=== PATIENT | male | born 1960 | race Caucasian/White ===

== ENCOUNTER 2017-09-19 06:49 | Inpatient (IN) | payer OTHER ==
[2017-09-19 06:49] VITALS: BMI 22.1
[2017-09-19 07:43] LABS: BASO % 0.3 % (0.0-2.0); EOS # 0.1 K/uL (0.0-0.7); EOS % 1.4 % (0.0-4.0); HEMOGLOBIN 12.3 g/dL (12.0-18.0); LYMPH # 0.7 K/uL (1.0-4.3); LYMPH % 12.1 % (20.0-40.0); MEAN CORPUSCULAR HEMOGLOBIN 28.9 pg (27.0-31.0); MEAN PLATELET VOLUME 7.3 fL (7.2-11.7); MONO # 0.6 K/uL (0.0-0.8); MONO % 9.9 % (0.0-10.0); NEUT # 4.5 K/uL (1.8-7.0); NEUT % 76.3 % (50.0-75.0); RBC 4.25 Mil/uL (4.40-5.90); RED CELL DISTRIBUTION WIDTH 15.3 % (11.5-14.5); WHITE BLOOD COUNT 5.9 K/uL (4.8-10.8)
[2017-09-19 07:54] LABS: INR 1.1; PROTHROMBIN TIME 11.5 SECONDS (9.7-12.2)
[2017-09-19 08:09] LABS: ALB/GLOB RATIO 1.5 (1.0-2.1); ALBUMIN 4.2 g/dL (3.5-5.0); ALT/SGPT 20 U/L (21-72); AST/SGOT 25 U/L (17-59); BLOOD UREA NITROGEN 13 mg/dL (9-20); CALCIUM 8.9 mg/dl (8.6-10.4); GFR AFRICAN-AMERICAN > 60; GFR NON-AFRICAN AMERICAN > 60
[2017-09-19 08:13] LABS: CK-MB 1.52 ng/mL (0.0-3.38)
--- NOTE | 2017-09-19 08:25 | RAD ---
HISTORY: Chest pain COMPARISON: 07/21/2015. FINDINGS: LUNGS: The lungs are well inflated and clear. PLEURA: No significant pleural effusion identified, no pneumothorax apparent. CARDIOVASCULAR: The heart is normal in size. Status post CABG. OSSEOUS STRUCTURES: No significant abnormalities. VISUALIZED UPPER ABDOMEN: Normal. OTHER FINDINGS: None. IMPRESSION: No active pulmonary disease.
--- NOTE | 2017-09-19 08:37 | C.PDOC ---
History Of Present Illness 57 y/o M c PMHx CAD s/p CABG p/w chest pain since awakening this morning. Reports chest pain, midsternal, burning in character, associated with dizziness and bilateral hand numbness and shortness of breath. Denies nausea, vomiting, diaphoresis, cough, fever, trauma. Took 162mg ASA prior to arrival. Time Seen by Provider: 09/19/17 07:16 Chief Complaint (Nursing): Chest Pain Past Medical History Vital Signs: Last Vital Signs Temp 98.5 F 09/19/17 07:11 Pulse 58 L 09/19/17 07:26 Resp 12 09/19/17 07:31 BP 103/67 09/19/17 07:11 Pulse Ox 100 09/19/17 07:31 - Medical History PMH: CAD, CHF, Gastritis, HTN, Hypercholesterolemia Denies: Depression, Diabetes, Hepatitis, HIV, Seizures, Sexually Transmitted Disease Surgical History: CABG - [facility] DETOXIFICATION SERVICES FOR SUBSTANCE ABUSE TREATMENT (05/10/15) INJECT/INFUSE NEC (04/24/13) Family History: States: Unknown Family Hx - Social History Hx Tobacco Use: Yes Hx Alcohol Use: No Hx Substance Use: Yes - Immunization History Hx Tetanus Toxoid Vaccination: No Hx Influenza Vaccination: No Hx Pneumococcal Vaccination: No Review Of Systems Except As Marked, All Systems Reviewed And Found Negative. Constitutional: Negative for: Fever Gastrointestinal: Negative for: Vomiting Physical Exam - Physical Exam Additional Physical Exam Comments: Constitutional: No acute distress. Head: Normocephalic. Atraumatic. Eyes: PERRL. ENT: Moist mucous membranes. Neck: Supple. Cardiovascular: Regular rate. Radial pulse 2+ bilaterally. Chest: No tenderness. Sternotomy scar. Respiratory: Clear to auscultation bilaterally. GI: Soft. Nontender. Back: No CVA tenderness. Musculoskeletal: No tenderness or swelling of extremities. Skin: No rash. Neurologic: Alert, no focal deficit. ED Course And Treatment - Laboratory Results Result Diagrams: 09/19/17 07:40 09/19/17 07:40 O2 Sat by Pulse Oximetry: 100 Medical Decision Making Medical Decision Making: ASA 162 additional administered. EKG Sinus rhythm 58 bpm, LBBB, no concordant ST elevations, largely unchanged from previous CXR FINDINGS: LUNGS: The lungs are well inflated and clear. PLEURA: No significant pleural effusion identified, no pneumothorax apparent. CARDIOVASCULAR: The heart is normal in size. Status post CABG. OSSEOUS STRUCTURES: No significant abnormalities. VISUALIZED UPPER ABDOMEN: Normal. OTHER FINDINGS: None. IMPRESSION: No active pulmonary disease. Dr. Em accepts patient to hospitalist service for cardiac observation. Disposition Discussed With : Elizabeth Em Doctor Will See Patient In The: ED - Disposition Disposition: HOSPITALIZED Disposition Time: 08:40 Condition: FAIR - POA Core Measure Indicators: Chest Pain - Clinical Impression Clinical Impression: Chest pain
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
[2017-09-19 11:08] LABS: BARBITURATES, UR NEGATIVE (NEGATIVE); BENZODIAZEPINES, UR NEGATIVE (NEGATIVE); PHENCYCLIDINE, UR NEGATIVE (NEGATIVE)
[2017-09-19 11:27] LABS: OPIATES, UR POSITIVE (NEGATIVE)
[2017-09-19] MEDS ORDERED: Albuterol-Ipratrop 3 mg / 0.5 (3 ml) UD INH PRN (11:39)
[2017-09-19] MEDS: Enoxaparin 40 mg Syringe SC SCH (12:02)
[2017-09-19] MEDS: Fluticasone-Salmeterol 250-50mcg Diskus IH SCH (12:27)
[2017-09-19 14:34] LABS: CK-MB 1.33 ng/mL (0.0-3.38); TROPONIN I 0.018 ng/mL (0.00-0.120)
[2017-09-19] MEDS ORDERED: Iodixanol 320 MG/ML 100 ML BOTTLE IV ONE (19:05)
--- NOTE | 2017-09-19 23:49 | CP.PCM.CON ---
History of Present Illness - History of Present Illness History of Present Illness: Re: chest pain 57 year old admitted with precordial chest pain shortness of breath No history of syncope palpitations Past medical: Systemic hypertension Hyperlipidemia Coronary artery disease Cerebrovascular disease Past surgery: CABG 2013 Every day smoker; history of substance abuse Exam Afebrile No distress Normal venous pressures No carotid bruits Clear lungs Abdomen soft No edema DP +=+ EKG: sinus Labs: reviewed CXR: Sternotomy Past Patient History - Infectious Disease Hx of Infectious Diseases: None - Past Medical History & Family History Past Medical History?: Yes - Past Social History Smoking Status: Light Smoker < 10 Cigarettes Daily - CARDIAC Hx Congestive Heart Failure: Yes Hx Hypercholesterolemia: Yes Hx Hypertension: Yes - PULMONARY Hx Tuberculosis: No - NEUROLOGICAL Hx Seizures: No - HEMATOLOGICAL/ONCOLOGICAL Hx Human Immunodeficiency Virus (HIV): No - MUSCULOSKELETAL/RHEUMATOLOGICAL Hx Falls: No - GASTROINTESTINAL Hx Gastritis: Yes - GENITOURINARY/GYNECOLOGICAL Hx Sexually Transmitted Disorders: No - PSYCHIATRIC Hx Depression: No Hx Substance Use: Yes - SURGICAL HISTORY Hx Coronary Artery Bypass Graft: Yes - ANESTHESIA Hx Anesthesia: Yes Hx Anesthesia Reactions: No Meds Allergies/Adverse Reactions: Allergies Allergy/AdvReac Type Severity Reaction Status Date / Time No Known Allergies Allergy Verified 09/19/17 07:15 - Medications Medications: Current Medications Albuterol/Ipratropium (Duoneb 3 Mg/0.5 Mg (3 Ml) Ud) 3 ml INH RQ6 PRN PRN Reason: Shortness of Breath Aspirin (Aspirin Chewable) 81 mg PO DAILY [facility] Carvedilol (Coreg) 6.25 mg PO BID [facility] Last Admin: 09/19/17 17:44 Dose: 6.25 mg Enoxaparin Sodium (Lovenox) 40 mg SC DAILY [facility] Last Admin: 09/19/17 12:02 Dose: 40 mg Lisinopril (Zestril) 5 mg PO DAILY [facility] Methadone HCl (Methadose) 40 mg PO DAILY [facility] Methadone HCl (Methadone) 5 mg PO DAILY [facility] Rosuvastatin Calcium (Crestor) 40 mg PO HS [facility] Last Admin: 09/19/17 21:33 Dose: 40 mg Fluticasone/Salmeterol (Advair Diskus 250/50) 1 puff IH RQ12 [facility] Last Admin: 09/19/17 12:27 Dose: 1 puff Results - Vital Signs Recent Vital Signs: Last Vital Signs Temp 97.9 F 09/19/17 15:38 Pulse 63 09/19/17 17:00 Resp 20 09/19/17 15:38 BP 137/85 09/19/17 15:38 Pulse Ox 97 09/19/17 15:38 - Labs Result Diagrams: 09/21/17 06:53 09/21/17 06:53 Labs: Laboratory Results - last 24 hr 09/19/17 09/19/17 09/19/17 07:40 07:40 07:44 WBC 5.9 RBC 4.25 L Hgb 12.3 Hct 36.1 MCV 85.0 MCH 28.9 MCHC 34.0 RDW 15.3 H Plt Count 233 MPV 7.3 Neut % (Auto) 76.3 H Lymph % (Auto) 12.1 L Cannon % (Auto) 9.9 Eos % (Auto) 1.4 Baso % (Auto) 0.3 Neut # (Auto) 4.5 Lymph # (Auto) 0.7 L Cannon # (Auto) 0.6 Eos # (Auto) 0.1 Baso # (Auto) 0.0 PT 11.5 INR 1.1 APTT 31 D-Dimer, Quantitative Sodium 141 Potassium 4.5 Chloride 103 Carbon Dioxide 27 Anion Gap 16 BUN 13 Creatinine 0.8 Est GFR ( Amer) > 60 Est GFR (Non-Af Amer) > 60 Random Glucose 109 Hemoglobin A1c Calcium 8.9 Total Bilirubin 0.8 AST 25 ALT 20 L D Alkaline Phosphatase 90 Total Creatine Kinase 56 CK-MB (Mass) 1.52 Troponin I < 0.0120 NT-Pro-B Natriuret Pep Total Protein 6.9 Albumin 4.2 Globulin 2.8 Albumin/Globulin Ratio 1.5 Triglycerides Cholesterol LDL Cholesterol Direct HDL Cholesterol TSH 3rd Generation Urine Opiates Screen Urine Methadone Screen Ur Barbiturates Screen Ur Phencyclidine Scrn Ur Amphetamines Screen U Benzodiazepines Scrn U Oth Cocaine Metabols U Cannabinoids Screen 09/19/17 09/19/17 09/19/17 10:00 10:00 10:40 WBC RBC Hgb Hct MCV MCH MCHC RDW Plt Count MPV Neut % (Auto) Lymph % (Auto) Cannon % (Auto) Eos % (Auto) Baso % (Auto) Neut # (Auto) Lymph # (Auto) Cannon # (Auto) Eos # (Auto) Baso # (Auto) PT INR APTT D-Dimer, Quantitative Sodium Potassium Chloride Carbon Dioxide Anion Gap BUN Creatinine Est GFR ( Amer) Est GFR (Non-Af Amer) Random Glucose Hemoglobin A1c 5.7 Calcium Total Bilirubin AST ALT Alkaline Phosphatase Total Creatine Kinase CK-MB (Mass) Troponin I NT-Pro-B Natriuret Pep Total Protein Albumin Globulin Albumin/Globulin Ratio Triglycerides 74 D Cholesterol 145 LDL Cholesterol Direct 85 HDL Cholesterol 39 TSH 3rd Generation 2.12 Urine Opiates Screen Positive H Urine Methadone Screen Positive H Ur Barbiturates Screen Negative Ur Phencyclidine Scrn Negative Ur Amphetamines Screen Negative U Benzodiazepines Scrn Negative U Oth Cocaine Metabols Negative U Cannabinoids Screen Negative 09/19/17 09/19/17 09/19/17 11:13 13:52 16:45 WBC RBC Hgb Hct MCV MCH MCHC RDW Plt Count MPV Neut % (Auto) Lymph % (Auto) Cannon % (Auto) Eos % (Auto) Baso % (Auto) Neut # (Auto) Lymph # (Auto) Cannon # (Auto) Eos # (Auto) Baso # (Auto) PT INR APTT D-Dimer, Quantitative 381 H Sodium Potassium Chloride Carbon Dioxide Anion Gap BUN Creatinine Est GFR ( Amer) Est GFR (Non-Af Amer) Random Glucose Hemoglobin A1c Calcium Total Bilirubin AST ALT Alkaline Phosphatase Total Creatine Kinase 65 CK-MB (Mass) 1.33 Troponin I 0.0180 NT-Pro-B Natriuret Pep 743 Total Protein Albumin Globulin Albumin/Globulin Ratio Triglycerides Cholesterol LDL Cholesterol Direct HDL Cholesterol TSH 3rd Generation Urine Opiates Screen Urine Methadone Screen Ur Barbiturates Screen Ur Phencyclidine Scrn Ur Amphetamines Screen U Benzodiazepines Scrn U Oth Cocaine Metabols U Cannabinoids Screen Assessment & Plan - Assessment and Plan (Free Text) Assessment: Mr. Patricio presented with a chest pain syndrome, unrevealing exam, a stable LBBB and unremarkable labs except elevated D-dimers Based on the background would assume coronary disease, assuming a negative chest CT The mild QTc interval increase related to methadone Plan: Echocardiogram Continue with antiplatelets Maintain normal serum electrolytes
[2017-09-20] MEDS: Fluticasone-Salmeterol 250-50mcg Diskus IH SCH ×2 (07:39→19:46)
[2017-09-20 07:40] LABS: BASO % 0.5 % (0.0-2.0); EOS # 0.1 K/uL (0.0-0.7); EOS % 2.1 % (0.0-4.0); HEMOGLOBIN 13.5 g/dL (12.0-18.0); LYMPH % 18.5 % (20.0-40.0); MEAN CORPUSCULAR HEMOGLOBIN 28.4 pg (27.0-31.0); MEAN CORPUSCULAR HGB CONC 33.7 g/dL (33.0-37.0); MEAN PLATELET VOLUME 7.7 fL (7.2-11.7); MONO # 0.5 K/uL (0.0-0.8); MONO % 9.6 % (0.0-10.0); NEUT # 3.8 K/uL (1.8-7.0); NEUT % 69.3 % (50.0-75.0); NRBC % 0.1 % (0.0-2.0); RBC 4.77 Mil/uL (4.40-5.90); RED CELL DISTRIBUTION WIDTH 15.3 % (11.5-14.5); WHITE BLOOD COUNT 5.4 K/uL (4.8-10.8)
[2017-09-20 08:07] LABS: ALB/GLOB RATIO 1.3 (1.0-2.1); ALBUMIN 4.1 g/dL (3.5-5.0); ALT/SGPT 27 U/L (21-72); AST/SGOT 27 U/L (17-59); BLOOD UREA NITROGEN 12 mg/dL (9-20); CALCIUM 9.2 mg/dl (8.6-10.4); GFR AFRICAN-AMERICAN > 60; GFR NON-AFRICAN AMERICAN > 60
--- NOTE | 2017-09-20 08:59 | CP.PCM.PN ---
<Boby Rios - Last Filed: 09/20/17 18:29> Subjective - Date & Time of Evaluation Date of Evaluation: 09/20/17 Time of Evaluation: 07:40 - Subjective Subjective: Medicine Progress Note Patient seen and examined at bedside. No acute distress. Patient reports feeling well today. He is tolerating his diet and reports normal BM today. Pt was seen by Dr. Barreto ( cardio) who would like to perform a stress test on friday. Patient denies any f/c headache, chest pain, palpitations, nausea, vomiting, abdominal pain, diarrhea, constipation, or any additional complaints. Objective - Vital Signs/Intake and Output Vital Signs (last 24 hours): Temp Pulse Resp BP Pulse Ox 97.7 F 61 20 126/79 97 09/20/17 07:00 09/20/17 07:00 09/20/17 07:00 09/20/17 07:00 09/20/17 07:00 - Medications Medications: Current Medications Albuterol/Ipratropium (Duoneb 3 Mg/0.5 Mg (3 Ml) Ud) 3 ml INH RQ6 PRN PRN Reason: Shortness of Breath Aspirin (Aspirin Chewable) 81 mg PO DAILY [facility] Carvedilol (Coreg) 6.25 mg PO BID [facility] Last Admin: 09/19/17 17:44 Dose: 6.25 mg Enoxaparin Sodium (Lovenox) 40 mg SC DAILY [facility] Last Admin: 09/19/17 12:02 Dose: 40 mg Lisinopril (Zestril) 5 mg PO DAILY [facility] Methadone HCl (Methadose) 40 mg PO DAILY [facility] Methadone HCl (Methadone) 5 mg PO DAILY [facility] Rosuvastatin Calcium (Crestor) 40 mg PO HS [facility] Last Admin: 09/19/17 21:33 Dose: 40 mg Fluticasone/Salmeterol (Advair Diskus 250/50) 1 puff IH RQ12 [facility] Last Admin: 09/20/17 07:39 Dose: 1 puff - Labs Labs: 09/20/17 07:30 09/20/17 07:30 PT 11.5 SECONDS (9.7-12.2) 09/19/17 07:44 INR 1.1 09/19/17 07:44 APTT 31 SECONDS (21-34) 09/19/17 07:44 - Additional Findings Additional findings: - Constitutional Appears: Non-toxic, No Acute Distress - Head Exam Head Exam: ATRAUMATIC, NORMAL INSPECTION, NORMOCEPHALIC - Eye Exam Eye Exam: EOMI, Normal appearance - ENT Exam ENT Exam: Mucous Membranes Moist - Respiratory Exam Respiratory Exam: Clear to Auscultation Bilateral, NORMAL BREATHING PATTERN. absent: Rales, Rhonchi, Wheezes, Respiratory Distress, Stridor - Cardiovascular Exam Cardiovascular Exam: REGULAR RHYTHM, RRR, +S1, +S2 - GI/Abdominal Exam GI & Abdominal Exam: Normal Bowel Sounds, Soft. absent: Tenderness - Extremities Exam Extremities exam: Positive for: normal inspection. Negative for: pedal edema, tenderness - Back Exam Back exam: NORMAL INSPECTION. absent: rash noted, tenderness - Neurological Exam Neurological exam: Alert, CN II-XII Intact, Oriented x3 - Psychiatric Exam Psychiatric exam: Normal Affect, Normal Mood - Skin Skin Exam: Dry, Intact, Warm Assessment and Plan - Assessment and Plan (Free Text) Assessment: Chest pain ACS, LBBB 09/20: f/u ECHO Troponin / CKMB negative x3 EKGs show signs of LBBB CT angio (chest) 09/19: no evidence of PE, no aortic aneurysm, lungs clear, see full report. Dr. Barreto (EP cardio) saw patient yesterday. Planning for stress test on Friday (inpt. or outpt.) BNP 743 D dimer 381 telemetry cardiac risk: hx of stroke, smoker, hypertension, CAD, CHF, lipid disorder, drug use [place] [facility] [place] 4 points-- 20% risk at 14 days of all cause mortality EKG: LBBB, no change compared to previous consult cardio, Dr. Barreto, help appreciated Aspirin given in ED Meds: ASA 81mg po daily Coreg 6.25 mg po BID Crestor 40mg po HS Lisinopril 5mg po daily HTN Coreg 6.25 mg po BID Hx Stroke Patient reports stuttering since his prior strokes x 4 (last in 2015) Aspirin 81mg po daily Crestor 40mg po HS blood pressure control COPD Advair 1 dsk IH q12h Albuterol HFA q4 prn Hx Heroin abuse Methadone 45mg po daily confirmed by methadone clinic ([facility]) Prophylaxis SCDs Lovenox 40mg sc daily Note: Patient is illiterate <Mary Helm V - Last Filed: 09/20/17 19:03> Objective - Vital Signs/Intake and Output Vital Signs (last 24 hours): Temp Pulse Resp BP Pulse Ox 97.9 F 58 L 18 111/67 96 09/20/17 15:00 09/20/17 16:05 09/20/17 15:00 09/20/17 15:00 09/20/17 15:00 - Medications Medications: Current Medications Albuterol/Ipratropium (Duoneb 3 Mg/0.5 Mg (3 Ml) Ud) 3 ml INH RQ6 PRN PRN Reason: Shortness of Breath Aspirin (Aspirin Chewable) 81 mg PO DAILY [facility] Last Admin: 09/20/17 09:52 Dose: 81 mg Carvedilol (Coreg) 6.25 mg PO BID [facility] Last Admin: 09/20/17 17:41 Dose: 6.25 mg Enoxaparin Sodium (Lovenox) 40 mg SC DAILY [facility] Last Admin: 09/20/17 09:52 Dose: 40 mg Lisinopril (Zestril) 5 mg PO DAILY [facility] Last Admin: 09/20/17 11:42 Dose: 5 mg Methadone HCl (Methadose) 40 mg PO DAILY [facility] Last Admin: 09/20/17 09:53 Dose: 40 mg Methadone HCl (Methadone) 5 mg PO DAILY [facility] Last Admin: 09/20/17 09:53 Dose: 5 mg Rosuvastatin Calcium (Crestor) 40 mg PO HS [facility] Last Admin: 09/19/17 21:33 Dose: 40 mg Fluticasone/Salmeterol (Advair Diskus 250/50) 1 puff IH RQ12 [facility] Last Admin: 09/20/17 07:39 Dose: 1 puff - Labs Labs: 09/20/17 07:30 09/20/17 07:30 PT 11.5 SECONDS (9.7-12.2) 09/19/17 07:44 INR 1.1 09/19/17 07:44 APTT 31 SECONDS (21-34) 09/19/17 07:44 Attending/Attestation - Attestation I have personally seen and examined this patient.: Yes I have fully participated in the care of the patient.: Yes I have reviewed all pertinent clinical information, including history, physical exam and plan: Yes Notes (Text): Patient seen, examined, and case discussed with medical case manager. Patient seen this afternoon. Patient denies any chest pain denies shortness of breath denies cough denies abdominal pain denies Durning complains denies diarrhea. Patient reports that he had chest pain yesterday after walking his dogs. He reports the chest pain came at onset of running up the stairs which prompted his to give him his meds and then he had issues while driving. Patient went for his echocardiogram awaiting report. Patient order for third troponin. We will follow-up with on-call servicer to determine if patient warrants inpatient stress or not. Patient does not have a history of diabetes he has a history of impaired glucose tolerance reports family history of pulmonary diabetes. Assessment/Plan 1) Chest pain Acute Coronary Syndrome LBBB * telemetry * cardiac risk: hx of stroke, smoker, hypertension, CAD, CHF, lipid disorder, drug use * Will try to [place] [facility] [place]: 4 points-- 20% risk at 14 days of all cause mortality * Troponin I : negative; repeat CARLOS x 2 with [id number] apart * EKG: LBBB, no change compared to previous * consult cardio, Dr. Barreto, help appreciated * f/u ECHO * D-Dimer: Positive * CT and she was negative for acute pulmonary embolus no aortic aneurysm clear lungs. * Aspirin given in ED; patient took his medications at home * check a1c, lipid panel, TSH/Free T4 Meds: * ASA 81mg po daily * Coreg 6.25 mg po BID * Crestor 40mg po HS * Lisinopril 5mg po daily 2) history of HTN * Coreg 6.25 mg po BID * Lisinopril 5mg po daily 3) Prior Hx Stroke * At least 4; last stroke in 4 (last in 2015) * Aspirin 81mg PO daily * Crestor 40mg PO HS * blood pressure control 4) History ofCOPD * Advair 1 dsk IH q12h * Albuterol HFA q4 prn 5) Hx Heroin abuse * Methadone 45mg po daily * confirmed by methadone clinic ([facility]) and UDS 6) Prophylaxis * SCDs * Lovenox 40mg sc daily * Note: Patient is illiterate; is primary care-taker Disposition: We will need to follow-up on third Carlos, echocardiogram report and for cardiology clearance for potential discharge planning tomorrow. Will need clarification if patient warrants inpatient stress test or not.
[2017-09-20] MEDS: Enoxaparin 40 mg Syringe SC SCH (09:52)
[2017-09-20] MEDS: Methadone 40 mg Tab PO SCH (09:53)
[2017-09-20 11:22] LABS: CK-MB 0.69 ng/mL (0.0-3.38); TROPONIN I 0.013 ng/mL (0.00-0.120)
--- NOTE | 2017-09-20 15:42 | CT ---
PROCEDURE: CT Chest with contrast (Pulmonary Angiogram) HISTORY: elevated d-dimer, chest pain COMPARISON: Plain radiograph performed on 09/19/2017 and CTA chest from 06/25/2015 TECHNIQUE: Axial computed tomography images were obtained of the chest in the pulmonary arterial phase of enhancement. Coronal and sagittal reformatted images were created and reviewed. Intravenous contrast dose: 100 mL Visipaque Radiation dose: Total exam DLP = 317.93 mGy-cm. This CT exam was performed using one or more of the following dose reduction techniques: Automated exposure control, adjustment of the mA and/or kV according to patient size, and/or use of iterative reconstruction technique. FINDINGS: PULMONARY ARTERIES: No filling defects in the pulmonary arteries to suggest acute pulmonary embolism. AORTA: No acute findings. No thoracic aortic aneurysm. LUNGS: The lungs are well inflated. There is a tiny calcified nodule in the right lateral upper lobe. There is mild centrilobular and paraseptal emphysema in the upper lobes. There is subsegmental atelectasis in the lingula and left lung base. No nodule, mass or pulmonary consolidation. PLEURAL SPACES: No effusion or pneumothorax. HEART: The heart is normal in size. No significant pericardial effusion. There are advanced coronary artery calcifications. LYMPH NODES: No pathologic lymphadenopathy. BONES, CHEST WALL: No fracture or destructive lesion There is diffuse bone demineralization and multilevel degenerative changes in the spine. OTHER FINDINGS: Unremarkable. IMPRESSION: No CT evidence for acute pulmonary embolism. No aortic aneurysm. Clear lungs. A preliminary report was provided by [employer] [facility].
[2017-09-21 00:43] VITALS: RESP 20
[2017-09-21 07:01] LABS: BASO % 0.3 % (0.0-2.0); EOS # 0.1 K/uL (0.0-0.7); EOS % 1.8 % (0.0-4.0); HEMOGLOBIN 13.5 g/dL (12.0-18.0); LYMPH # 1.1 K/uL (1.0-4.3); LYMPH % 23.6 % (20.0-40.0); MEAN CELL VOLUME 84.6 fL (80.0-94.0); MEAN CORPUSCULAR HEMOGLOBIN 28.6 pg (27.0-31.0); MEAN CORPUSCULAR HGB CONC 33.8 g/dL (33.0-37.0); MEAN PLATELET VOLUME 7.6 fL (7.2-11.7); MONO # 0.4 K/uL (0.0-0.8); MONO % 8.6 % (0.0-10.0); NEUT # 3.1 K/uL (1.8-7.0); NEUT % 65.7 % (50.0-75.0); RBC 4.73 Mil/uL (4.40-5.90); RED CELL DISTRIBUTION WIDTH 15.3 % (11.5-14.5); WHITE BLOOD COUNT 4.8 K/uL (4.8-10.8)
[2017-09-21] MEDS: Fluticasone-Salmeterol 250-50mcg Diskus IH SCH (07:10)
[2017-09-21 07:29] LABS: ALB/GLOB RATIO 1.3 (1.0-2.1); ALT/SGPT 21 U/L (21-72); AST/SGOT 27 U/L (17-59); BLOOD UREA NITROGEN 15 mg/dL (9-20); CALCIUM 9.3 mg/dl (8.6-10.4); GFR AFRICAN-AMERICAN > 60; GFR NON-AFRICAN AMERICAN > 60
--- NOTE | 2017-09-21 08:00 | CP.PCM.PN ---
<Boby Rios - Last Filed: 09/21/17 17:29> Subjective - Date & Time of Evaluation Date of Evaluation: 09/21/17 Time of Evaluation: 07:25 - Subjective Subjective: Medicine Progress Note Patient seen and examined at bedside. No acute distress. Patient reports feeling well today. His tolerating his diet and reports normal BM. For life vest evaluation friday by [facility] from [facility] (Dr. Barreto contacted). For possible stress test (inpt. or outpt.). Patient denies any f/c headache, chest pain, palpitations, nausea, vomiting, abdominal pain, diarrhea, constipation, or any additional complaints. Objective - Vital Signs/Intake and Output Vital Signs (last 24 hours): Temp Pulse Resp BP Pulse Ox 97.7 F 66 20 110/70 97 09/21/17 00:00 09/21/17 00:00 09/21/17 00:00 09/21/17 00:00 09/21/17 03:00 - Medications Medications: Current Medications Albuterol/Ipratropium (Duoneb 3 Mg/0.5 Mg (3 Ml) Ud) 3 ml INH RQ6 PRN PRN Reason: Shortness of Breath Aspirin (Aspirin Chewable) 81 mg PO DAILY [facility] Last Admin: 09/20/17 09:52 Dose: 81 mg Carvedilol (Coreg) 6.25 mg PO BID [facility] Last Admin: 09/20/17 17:41 Dose: 6.25 mg Enoxaparin Sodium (Lovenox) 40 mg SC DAILY [facility] Last Admin: 09/20/17 09:52 Dose: 40 mg Lisinopril (Zestril) 5 mg PO DAILY [facility] Last Admin: 09/20/17 11:42 Dose: 5 mg Methadone HCl (Methadose) 40 mg PO DAILY [facility] Last Admin: 09/20/17 09:53 Dose: 40 mg Methadone HCl (Methadone) 5 mg PO DAILY [facility] Last Admin: 09/20/17 09:53 Dose: 5 mg Rosuvastatin Calcium (Crestor) 40 mg PO HS [facility] Last Admin: 09/20/17 21:32 Dose: 40 mg Fluticasone/Salmeterol (Advair Diskus 250/50) 1 puff IH RQ12 [facility] Last Admin: 09/20/17 19:46 Dose: 1 puff - Labs Labs: 09/21/17 06:53 09/21/17 06:53 PT 11.5 SECONDS (9.7-12.2) 09/19/17 07:44 INR 1.1 09/19/17 07:44 APTT 31 SECONDS (21-34) 09/19/17 07:44 - Additional Findings Additional findings: - Constitutional Appears: Non-toxic, No Acute Distress - Head Exam Head Exam: ATRAUMATIC, NORMAL INSPECTION, NORMOCEPHALIC - Eye Exam Eye Exam: EOMI, Normal appearance - ENT Exam ENT Exam: Mucous Membranes Moist - Respiratory Exam Respiratory Exam: Clear to Auscultation Bilateral, NORMAL BREATHING PATTERN. absent: Rales, Rhonchi, Wheezes, Respiratory Distress, Stridor - Cardiovascular Exam Cardiovascular Exam: REGULAR RHYTHM, RRR, +S1, +S2 - GI/Abdominal Exam GI & Abdominal Exam: Normal Bowel Sounds, Soft. absent: Tenderness - Extremities Exam Extremities exam: Positive for: normal inspection. Negative for: pedal edema, tenderness - Back Exam Back exam: NORMAL INSPECTION. absent: rash noted, tenderness - Neurological Exam Neurological exam: Alert, CN II-XII Intact, Oriented x3 - Psychiatric Exam Psychiatric exam: Normal Affect, Normal Mood - Skin Skin Exam: Dry, Intact, Warm Assessment and Plan - Assessment and Plan (Free Text) Assessment: Chest pain ACS, LBBB 09/20-09/21: f/u ECHO - reviewed by Dr. Barreto (poor LV EF); f/u full report. Patient will require Life Vest. Dr. Barreto attempted to contact Michele from [facility]. Dr. Barreto (EP cardio) recommends stress test - possibly Friday (or may be scheduled outpt.) Troponin / CKMB negative x3 EKGs show signs of LBBB - stable CT angio (chest) 09/19: no evidence of PE, no aortic aneurysm, lungs clear, see full report. BNP 743 D dimer 381 telemetry cardiac risk: hx of stroke, smoker, hypertension, CAD, CHF, lipid disorder, drug use retrieve prior cardiac workup from [facility] [place]: 4 points-- 20% risk at 14 days of all cause mortality EKG: LBBB, no change compared to previous consult cardio, Dr. Barreto, help appreciated Aspirin given in ED Meds: ASA 81mg po daily Coreg 6.25 mg po BID Crestor 40mg po HS Lisinopril 5mg po daily HTN 09/21: BP well controlled, continue to monitor. Coreg 6.25 mg po BID Hx Stroke Patient reports stuttering since his prior strokes x 4 (last in 2015) Aspirin 81mg po daily Crestor 40mg po HS blood pressure control COPD Advair 1 dsk IH q12h Albuterol HFA q4 prn Hx Heroin abuse Methad[facility] po [facility] Prophylaxis SCDs Lovenox 40mg sc daily Note: Patient is illiterate Case discussed with Dr. Helm <Mary Helm V - Last Filed: 09/21/17 22:53> Objective - Vital Signs/Intake and Output Vital Signs (last 24 hours): Temp Pulse Resp BP Pulse Ox 97.5 F L 66 20 122/75 98 09/21/17 07:10 09/21/17 12:00 09/21/17 07:10 09/21/17 07:10 09/21/17 12:00 - Medications Medications: Current Medications Albuterol/Ipratropium (Duoneb 3 Mg/0.5 Mg (3 Ml) Ud) 3 ml INH RQ6 PRN PRN Reason: Shortness of Breath Aspirin (Aspirin Chewable) 81 mg PO DAILY [facility] Last Admin: 09/21/17 09:10 Dose: 81 mg Carvedilol (Coreg) 6.25 mg PO BID [facility] Last Admin: 09/21/17 09:10 Dose: 6.25 mg Enoxaparin Sodium (Lovenox) 40 mg SC DAILY [facility] Last Admin: 09/21/17 09:10 Dose: 40 mg Lisinopril (Zestril) 5 mg PO DAILY [facility] Last Admin: 09/21/17 09:10 Dose: 5 mg Methadone HCl (Methadose) 40 mg PO DAILY [facility] Last Admin: 09/21/17 09:10 Dose: 40 mg Methadone HCl (Methadone) 5 mg PO DAILY [facility] Last Admin: 09/21/17 09:10 Dose: 5 mg Rosuvastatin Calcium (Crestor) 40 mg PO HS [facility] Last Admin: 09/20/17 21:32 Dose: 40 mg Fluticasone/Salmeterol (Advair Diskus 250/50) 1 puff IH RQ12 [facility] Last Admin: 09/21/17 07:10 Dose: 1 puff - Labs Labs: 09/21/17 06:53 09/21/17 06:53 PT 11.5 SECONDS (9.7-12.2) 09/19/17 07:44 INR 1.1 09/19/17 07:44 APTT 31 SECONDS (21-34) 09/19/17 07:44 Attending/Attestation - Attestation I have personally seen and examined this patient.: Yes I have fully participated in the care of the patient.: Yes I have reviewed all pertinent clinical information, including history, physical exam and plan: Yes Notes (Text): Patient seen, examined, and case discussed with medical collections specialist. Patient seen this afternoon. Patient denies any chest pain denies shortness of breath denies cough denies abdominal pain denies constipation. Patient completed his echocardiogram yesterday. Dr. Barreto came in today and reviewed the echocardiogram. Recommended that patient need LifeVest given the changes in his echocardiogram. We are awaiting official report. He has called the [facility] to provide lifevest and is aware that patient's discharge and more importantly safety requires it. Please note: lifevest is form of sudden cardiac prophylaxis and given his multiple cardiac risk factors and changes in echocardiogram, cardiology has recommended it. Cardiology has recommended for stress test as well. Patient is amiable to recommendation. Cardiology note appeared in the afternoon is recommending for cardiac cath. unclear when it will be scheduled. Patient's follow-up appointment with Dr Faria is scheduled for October 02. I have educated that the patient in regards to his impaired glucose tolerance given paternal family history of diabetes instructed he needs to make lifestyle modifications and exercise. Will change patient to inpatient given further workup by cardiology including cath and lifevest given decreased ejection fraction noted on echocardiogram Assessment/Plan 1) Chest pain Acute Coronary Syndrome LBBB * telemetry * cardiac risk: hx of stroke, smoker, hypertension, CAD, CHF, lipid disorder, drug use * Will try to retrieve prior cardiac workup from [facility] [place] * KAYLA: 4 points-- 20% risk at 14 days of all cause mortality * Troponin I : negative; repeat CARLOS x 2 with [id number] apart * EKG: LBBB, no change compared to previous * consult cardio, Dr. Barreto, help appreciated * f/u ECHO-->he has reviewed echocardiogram and recommended for lifevest * We are awaiting [facility] ([facility]) to come to evaluate and fit patient for lifevest, which is form of sudden cardiac prophylaxis. * D-Dimer: Positive * CT and she was negative for acute pulmonary embolus no aortic aneurysm clear lungs. * Aspirin given in ED; patient took his medications at home * Hgba1c: 5.7 * Lipid Panel: T, cholestrol: 145, LDL: 85, HDL: 39 * TSH: 2.12 Meds: * ASA 81mg po daily * Coreg 6.25 mg po BID * Crestor 40mg po HS * Lisinopril 5mg po daily 2) History of HTN * Coreg 6.25 mg po BID * Lisinopril 5mg po daily 3) Prior Hx Stroke * At least 4; last stroke in 4 (last in 2015) * Aspirin 81mg PO daily * Crestor 40mg PO HS * blood pressure control 4) History ofCOPD * Advair 1 dsk IH q12h * Albuterol HFA q4 prn 5) Hx Heroin abuse * Methadone 45mg po daily * confirmed by methadone clinic ([facility]) and UDS 6) Prophylaxis * SCDs * Lovenox 40mg sc daily * Note: Patient is illiterate; is primary care-taker Disposition: We are awaiting patient for Lifevest given abnormal echocardiogram per cardiology and possible cardiac cath. We have changed to inpatient in light of cardiology recommendations.
[2017-09-21] MEDS: Enoxaparin 40 mg Syringe SC SCH (09:10)
[2017-09-21] MEDS: Methadone 40 mg Tab PO SCH (09:10)
--- NOTE | 2017-09-21 16:41 | CP.PCM.PN ---
Subjective - Date & Time of Evaluation Date of Evaluation: 09/21/17 Time of Evaluation: 16:39 - Subjective Subjective: Events noted No interval change in symptoms Awaiting discharge Echocardiogram reviewed No distress Afebrile Normal venous pressures normal heart sounds No edema Objective - Vital Signs/Intake and Output Vital Signs (last 24 hours): Temp Pulse Resp BP Pulse Ox 97.5 F L 66 20 122/75 98 09/21/17 07:10 09/21/17 12:00 09/21/17 07:10 09/21/17 07:10 09/21/17 12:00 - Medications Medications: Current Medications Albuterol/Ipratropium (Duoneb 3 Mg/0.5 Mg (3 Ml) Ud) 3 ml INH RQ6 PRN PRN Reason: Shortness of Breath Aspirin (Aspirin Chewable) 81 mg PO DAILY [facility] Last Admin: 09/21/17 09:10 Dose: 81 mg Carvedilol (Coreg) 6.25 mg PO BID [facility] Last Admin: 09/21/17 09:10 Dose: 6.25 mg Enoxaparin Sodium (Lovenox) 40 mg SC DAILY [facility] Last Admin: 09/21/17 09:10 Dose: 40 mg Lisinopril (Zestril) 5 mg PO DAILY [facility] Last Admin: 09/21/17 09:10 Dose: 5 mg Methadone HCl (Methadose) 40 mg PO DAILY [facility] Last Admin: 09/21/17 09:10 Dose: 40 mg Methadone HCl (Methadone) 5 mg PO DAILY [facility] Last Admin: 09/21/17 09:10 Dose: 5 mg Rosuvastatin Calcium (Crestor) 40 mg PO HS [facility] Last Admin: 09/20/17 21:32 Dose: 40 mg Fluticasone/Salmeterol (Advair Diskus 250/50) 1 puff IH RQ12 [facility] Last Admin: 09/21/17 07:10 Dose: 1 puff - Labs Labs: 09/21/17 06:53 09/21/17 06:53 PT 11.5 SECONDS (9.7-12.2) 09/19/17 07:44 INR 1.1 09/19/17 07:44 APTT 31 SECONDS (21-34) 09/19/17 07:44 Assessment and Plan - Assessment and Plan (Free Text) Assessment: Mr. Patricio presented with a chest pain syndrome, unrevealing exam, a stable LBBB and unremarkable labs except elevated D-dimers Based on the background would assume coronary disease, assuming a negative chest CT The mild QTc interval increase related to methadone Echocardiogrm showed severe LV systolic dysfunction with an estimated ejection fraction of 30-35% The mechanism of this dilated cardiomyopathy is unclear; diffuse dysfunction suggests non ischemic mechanism; Plan: Life vest Cardiac cath Up-titrate ACEI/Beta blockers
[2017-09-22] MEDS: Fluticasone-Salmeterol 250-50mcg Diskus IH SCH (07:27)
[2017-09-22 07:59] VITALS: TEMP 98; O2SAT 99
[2017-09-22 07:59] LABS: BASO % 0.5 % (0.0-2.0); EOS # 0.1 K/uL (0.0-0.7); LYMPH # 1.3 K/uL (1.0-4.3); LYMPH % 25.5 % (20.0-40.0); MEAN CELL VOLUME 84.1 fL (80.0-94.0); MEAN CORPUSCULAR HGB CONC 34.4 g/dL (33.0-37.0); MEAN PLATELET VOLUME 7.6 fL (7.2-11.7); MONO # 0.4 K/uL (0.0-0.8); MONO % 8.7 % (0.0-10.0); NEUT # 3.2 K/uL (1.8-7.0); NEUT % 63.3 % (50.0-75.0); RBC 4.48 Mil/uL (4.40-5.90); RED CELL DISTRIBUTION WIDTH 15.5 % (11.5-14.5); WHITE BLOOD COUNT 5.1 K/uL (4.8-10.8)
[2017-09-22 08:19] LABS: ALB/GLOB RATIO 1.4 (1.0-2.1); ALT/SGPT 24 U/L (21-72); AST/SGOT 26 U/L (17-59); BLOOD UREA NITROGEN 19 mg/dL (9-20); GFR AFRICAN-AMERICAN > 60; GFR NON-AFRICAN AMERICAN > 60
[2017-09-22] MEDS: Enoxaparin 40 mg Syringe SC SCH (09:46)
[2017-09-22] MEDS: Methadone 40 mg Tab PO SCH (09:46)
--- NOTE | 2017-09-22 11:18 | CARD ---
APPROVED REPORT EXAM: Two-dimensional and M-mode echocardiogram with Doppler and color Doppler. Other Information Quality : GoodRhythm : INDICATION Chest Pain COPD DRUG ABUSED Surgery/Intervention CABG: RISK FACTORS Hypertension 2D DIMENSIONS IVSd1.2 (0.7-1.1cm)LVDd4.9 (3.9-5.9cm) LVOT Diameter2.0 (1.8-2.4cm)PWd1.1 (0.7-1.1cm) LVDs4.0 (2.5-4.0cm)FS (%) 18.3 % LVEF (%)37.8 (>50%) M-Mode DIMENSIONS Left Atrium (MM)4.30 (2.5-4.0cm)Aortic Root2.67 (2.2-3.7cm) Aortic Cusp Exc.1.87 (1.5-2.0cm) Mitral Valve MV E Yioeqyqh90.6cm/sMV A Fdgavjqb24.4cm/sE/A ratio0.9 TDI E/Lateral E'0.0E/Medial E'0.0 LEFT VENTRICLE The Left Ventricle is mildly dilated. There is normal left ventricular wall thickness. Left ventricle systolic function is moderately impaired. The Ejection Fraction is 30-35%. There is global hypokinesis of the left ventricle. Transmitral Doppler flow pattern is Grade I-abnormal relaxation pattern. No left ventricle thrombus noted on this study. LV filling pressure is elevated. There is no ventricular septal defect visualized. There is no left ventricular aneurysm. There is no mass noted in the left ventricle. RIGHT VENTRICLE The right ventricle is normal size. There is normal right ventricular wall thickness. The right ventricular systolic function is normal. ATRIA The left atrium is moderately dilated. The right atrium size is normal. The interatrial septum is intact with no evidence for an atrial septal defect. AORTIC VALVE The aortic valve is normal in structure and function. No aortic regurgitation is present. There is no aortic valvular stenosis. There is no aortic valvular vegetation. MITRAL VALVE The mitral valve is normal in structure and function. There is no evidence of mitral valve prolapse. There is no mitral valve stenosis. Mitral regurgitation is mild. TRICUSPID VALVE The tricuspid valve is normal in structure and function. There is no tricuspid valve regurgitation noted. There is no tricuspid valve prolapse or vegetation. There is no tricuspid valve stenosis. PULMONIC VALVE The pulmonary valve is normal in structure and function. There is no pulmonic valvular regurgitation. There is no pulmonic valvular stenosis. GREAT VESSELS The aortic root is normal in size. The ascending aorta is normal in size. The pulmonary artery is normal. The IVC is normal in size and collapses >50% with inspiration. PERICARDIAL EFFUSION The pericardium appears normal. There is no pleural effusion. <Conclusion> The Left Ventricle is mildly dilated. Left ventricle systolic function is moderately impaired. The Ejection Fraction is 30-35%. There is global hypokinesis of the left ventricle. No left ventricle thrombus noted on this study. LV filling pressure is elevated. The left atrium is moderately dilated.
--- NOTE | 2017-09-22 11:42 | CP.PCM.PN ---
Subjective - Date & Time of Evaluation Date of Evaluation: 09/22/17 Time of Evaluation: 11:20 - Subjective Subjective: Patient was seen and examined at 11:20 AM. Currently upon FULL ROS there are NO complaints HEENT, Cardio, Resp, GI, Ext, Neuro exams are unremarkable. Awaiting Life Vest placement by [employer] Awaiting to hear back from Cardiology Dr. Barreto concerning whether Stress Test needs to be performed while in-patient or if it can be performed outpatient Once the above 2 issues are fulfilled then patient may be discharged with the following instructions: 1). Schedule follow up with your Primary Care Physician Dr. Harper. 2). Schedule follow up with Seafood Packer Dr. Barreto. 3). Continue your Methadone Treatment program at [facility] located at [address] [place] [address] [place] [address]. 4). Please have the following prescriptions filled at your pharmacy: Aspirin 81 mg, 1 tablet by mouth 1x/day at 8 AM, Dispense #30, NO refills Coreg 6.25 mg, 1 tablet by mouth 2x/day at 8 AM and 8 PM, Dispense #60, NO refills Advair 250/50 mcg, 1 inhalation by mouth 2x/day at 8 AM and 8 PM, Dispense #30, NO refills Albuterol 90 mcg, 2 inhalations by mouth every 6 hours ONLY NEEDED for shortness of breath/wheezing, Dispense #1, NO refills Lisinopril 5 mg, 1 tablet by mouth 1x/day at 2 PM, Dispense #30, NO refills Atorvastatin 80 mg, 1 tablet by mouth 1x/day at 8 PM, Dispense #30, NO refills 5). You were also provided with a prescription that stated the following: The above patient was admitted to the hospital from 09/19/17 through 09/22/17. Spencer Myers D.O. Objective - Vital Signs/Intake and Output Vital Signs (last 24 hours): Temp Pulse Resp BP Pulse Ox 98.0 F 58 L 20 153/87 H 99 09/22/17 07:00 09/22/17 08:29 09/22/17 07:00 09/22/17 07:00 09/22/17 07:00 - Medications Medications: Current Medications Albuterol/Ipratropium (Duoneb 3 Mg/0.5 Mg (3 Ml) Ud) 3 ml INH RQ6 PRN PRN Reason: Shortness of Breath Aspirin (Aspirin Chewable) 81 mg PO DAILY [facility] Last Admin: 09/22/17 09:46 Dose: 81 mg Carvedilol (Coreg) 6.25 mg PO BID [facility] Last Admin: 09/22/17 09:46 Dose: 6.25 mg Enoxaparin Sodium (Lovenox) 40 mg SC DAILY [facility] Last Admin: 09/22/17 09:46 Dose: 40 mg Lisinopril (Zestril) 5 mg PO DAILY [facility] Last Admin: 09/22/17 09:46 Dose: 5 mg Methadone HCl (Methadose) 40 mg PO DAILY [facility] Last Admin: 09/22/17 09:46 Dose: 40 mg Methadone HCl (Methadone) 5 mg PO DAILY [facility] Last Admin: 09/22/17 09:46 Dose: 5 mg Rosuvastatin Calcium (Crestor) 40 mg PO HS [facility] Last Admin: 09/21/17 21:16 Dose: 40 mg Fluticasone/Salmeterol (Advair Diskus 250/50) 1 puff IH RQ12 [facility] Last Admin: 09/22/17 07:27 Dose: 1 puff - Labs Labs: 09/22/17 07:50 09/22/17 07:50 PT 11.5 SECONDS (9.7-12.2) 09/19/17 07:44 INR 1.1 09/19/17 07:44 APTT 31 SECONDS (21-34) 09/19/17 07:44
--- NOTE | 2017-09-22 12:47 | CP.PCM.DIS ---
Provider - Provider Date of Admission: 09/19/17 22:53 Attending physician: Elizabeth Em MD Primary care physician: Dr. Harvey Consults: Dr. Barreto (cardio) Time Spent in preparation of Discharge (in minutes): 40 Diagnosis - Discharge Diagnosis (1) Chest pain Status: Resolved (2) Cardiac LV ejection fraction 21-40% Status: Chronic Comment: patient to go home with life vest (3) History of CVA (cerebrovascular accident) Status: Chronic (4) COPD (chronic obstructive pulmonary disease) Status: Chronic (5) HTN (hypertension) Status: Chronic Hospital Course - Lab Results Lab Results: Most Recent Lab Values WBC 5.1 K/uL (4.8-10.8) 09/22/17 07:50 RBC 4.48 Mil/uL (4.40-5.90) 09/22/17 07:50 Hgb 13.0 g/dL (12.0-18.0) 09/22/17 07:50 Hct 37.7 % (35.0-51.0) 09/22/17 07:50 MCV 84.1 fL (80.0-94.0) 09/22/17 07:50 MCH 29.0 pg (27.0-31.0) 09/22/17 07:50 MCHC 34.4 g/dL (33.0-37.0) 09/22/17 07:50 RDW 15.5 % (11.5-14.5) H 09/22/17 07:50 Plt Count 250 K/uL (130-400) 09/22/17 07:50 MPV 7.6 fL (7.2-11.7) 09/22/17 07:50 Neut % (Auto) 63.3 % (50.0-75.0) 09/22/17 07:50 Lymph % (Auto) 25.5 % (20.0-40.0) 09/22/17 07:50 Ward % (Auto) 8.7 % (0.0-10.0) 09/22/17 07:50 Eos % (Auto) 2.0 % (0.0-4.0) 09/22/17 07:50 Baso % (Auto) 0.5 % (0.0-2.0) 09/22/17 07:50 Neut # (Auto) 3.2 K/uL (1.8-7.0) 09/22/17 07:50 Lymph # (Auto) 1.3 K/uL (1.0-4.3) 09/22/17 07:50 Ward # (Auto) 0.4 K/uL (0.0-0.8) 09/22/17 07:50 Eos # (Auto) 0.1 K/uL (0.0-0.7) 09/22/17 07:50 Baso # (Auto) 0.0 K/uL (0.0-0.2) 09/22/17 07:50 PT 11.5 SECONDS (9.7-12.2) 09/19/17 07:44 INR 1.1 09/19/17 07:44 APTT 31 SECONDS (21-34) 09/19/17 07:44 D-Dimer, Quantitative 381 ng/mlDDU (0-243) H 09/19/17 16:45 Sodium 140 mmol/L (132-148) 09/22/17 07:50 Potassium 4.4 mmol/L (3.6-5.2) 09/22/17 07:50 Chloride 103 mmol/L (98-107) 09/22/17 07:50 Carbon Dioxide 29 mmol/L (22-30) 09/22/17 07:50 Anion Gap 12 (10-20) 09/22/17 07:50 BUN 19 mg/dL (9-20) 09/22/17 07:50 Creatinine 0.8 mg/dL (0.8-1.5) 09/22/17 07:50 Est GFR ( Amer) > 60 09/22/17 07:50 Est GFR (Non-Af Amer) > 60 09/22/17 07:50 Random Glucose 88 mg/dL (75-110) 09/22/17 07:50 Hemoglobin A1c 5.7 % (4.2-6.5) 09/19/17 10:00 Calcium 9.0 mg/dl (8.6-10.4) 09/22/17 07:50 Phosphorus 3.6 mg/dL (2.5-4.5) 09/22/17 07:50 Magnesium 2.2 mg/dL (1.6-2.3) 09/22/17 07:50 Total Bilirubin 0.6 mg/dL (0.2-1.3) 09/22/17 07:50 AST 26 U/L (17-59) 09/22/17 07:50 ALT 24 U/L (21-72) 09/22/17 07:50 Alkaline Phosphatase 92 U/L (38-126) 09/22/17 07:50 Total Creatine Kinase 45 U/L (55-170) L 09/20/17 10:41 CK-MB (Mass) 0.69 ng/mL (0.0-3.38) 09/20/17 10:41 Troponin I 0.0130 ng/mL (0.00-0.120) 09/20/17 10:41 NT-Pro-B Natriuret Pep 743 pg/mL (0-900) 09/19/17 11:13 Total Protein 6.8 g/dL (6.3-8.3) 09/22/17 07:50 Albumin 4.0 g/dL (3.5-5.0) 09/22/17 07:50 Globulin 2.8 gm/dL (2.2-3.9) 09/22/17 07:50 Albumin/Globulin Ratio 1.4 (1.0-2.1) 09/22/17 07:50 Triglycerides 74 mg/dL (0-149) D 09/19/17 10:00 Cholesterol 145 mg/dL (0-199) 09/19/17 10:00 LDL Cholesterol Direct 85 mg/dL (0-129) 09/19/17 10:00 HDL Cholesterol 39 mg/dL (30-70) 09/19/17 10:00 Free T4 0.99 ng/dL (0.78-2.19) 09/20/17 07:30 TSH 3rd Generation 2.12 mIU/L (0.46-4.68) 09/19/17 10:00 Urine Opiates Screen Positive (NEGATIVE) H 09/19/17 10:40 Urine Methadone Screen Positive (NEGATIVE) H 09/19/17 10:40 Ur Barbiturates Screen Negative (NEGATIVE) 09/19/17 10:40 Ur Phencyclidine Scrn Negative (NEGATIVE) 09/19/17 10:40 Ur Amphetamines Screen Negative (NEGATIVE) 09/19/17 10:40 U Benzodiazepines Scrn Negative (NEGATIVE) 09/19/17 10:40 U Oth Cocaine Metabols Negative (NEGATIVE) 09/19/17 10:40 U Cannabinoids Screen Negative (NEGATIVE) 09/19/17 10:40 - Hospital Course Hospital Course: Patient is a 57 y/o male with PMHx of CAD, CABG (2013), CVAs x 4, HTN, CHF, HLD , and gastritis who presents today for chest pain and weakness in both arms. Patient said he woke up this morning around 6 am and shortly after started to feel a burning tightness in the mid sternum which he rated 7/10. There was no radiation of the pain, but patient did feel short of breath and lightheaded. Patient took his regular medications including aspirin and decided to go to work. While driving to work he started to feel numbness in both hands and noticed that he was swerving on the road so he decided to come to the ED. Since getting to the ED, patient's chest pain has decreased to 4/10. Patient says arms feel less weak as well. Of note patient is stuttering some words during the interview which he says he normally doesn't do. Patient denies any headache , nausea, vomiting, abdominal pain, diarrhea, constipation. Patient admitted to rule out ACS with his cardiac risk factors of stroke, smoker , hypertension, CAD, CHF, lipid disorder, drug use. Patient put on telemetry. EKG showed LBBB, unchanged from previous EKGs. Troponins and CKMB were negative x 3. Dr. Barreto, cardiology, was consulted. Patient was given ASA 81mg po daily, Coreg 6.25 mg po BID, Crestor 40mg po HS, Lisinopril 5mg po daily. Echocardiogrm showed severe LV systolic dysfunction with an estimated ejection fraction of 30-35%, patient will need a life vest and close follow up with Dr. Barreto. For patient's hx of prior strokes patient was given Aspirin 81mg po daily and Crestor 40mg po HS. Blood pressure was monitored and controlled. For patient's hx of COPD patient was given Advair 1 dsk IH q12h and Albuterol HFA q4 prn. Patient was kept on his Methadone and dose confirmed with his methadone clinic. Upon discharge patient had no complaints and chest pain had resolved. This is a summary of the patient's hospital course, please see chart for full details. Discharge Exam - Additional Findings Additional findings: - Constitutional Appears: Non-toxic, No Acute Distress - Head Exam Head Exam: ATRAUMATIC, NORMAL INSPECTION, NORMOCEPHALIC - Eye Exam Eye Exam: EOMI, Normal appearance - ENT Exam ENT Exam: Mucous Membranes Moist - Respiratory Exam Respiratory Exam: Clear to Auscultation Bilateral, NORMAL BREATHING PATTERN. absent: Rales, Rhonchi, Wheezes, Respiratory Distress, Stridor - Cardiovascular Exam Cardiovascular Exam: REGULAR RHYTHM, RRR, +S1, +S2 - GI/Abdominal Exam GI & Abdominal Exam: Normal Bowel Sounds, Soft. absent: Tenderness - Extremities Exam Extremities exam: Positive for: normal inspection. Negative for: pedal edema, tenderness - Back Exam Back exam: NORMAL INSPECTION. absent: rash noted, tenderness - Neurological Exam Neurological exam: Alert, CN II-XII Intact, Oriented x3 - Psychiatric Exam Psychiatric exam: Normal Affect, Normal Mood - Skin Skin Exam: Dry, Intact, Warm Discharge Plan - Discharge Medications Prescriptions: Albuterol HFA [Ventolin HFA 90 mcg/actuation (8 g)] 0.09 mg IH Q6H PRN #1 inhaler PRN Reason: Wheezing Aspirin [Aspirin Chewable] 81 mg PO DAILY #30 chew Atorvastatin [Lipitor] 1 tab PO DAILY #30 tab Carvedilol [Coreg] 6.25 mg PO BID #60 tab Fluticasone/Salmeterol 250/50 [Advair Diskus 250/50] 1 dsk IH BID #1 dsk Lisinopril [Zestril] 5 mg PO DAILY #30 tab - Follow Up Plan Condition: STABLE Disposition: HOME/ ROUTINE Instructions: Heart Failure, Adult, Smoking: Not Just Harmful to Your Lungs and Heart, Chest Pain (DC), Quitting Smoking, Albuterol, Aspirin, Atorvastatin, Carvedilol, Fluticasone and Salmeterol, Lisinopril Additional Instructions: Patient stable for discharge. 1). Schedule follow up with your Primary Care Physician Dr. Harper. 2). Schedule follow up with Animal Attendant Dr. Barreto for next , October 02 ) 3). Continue your Methadone Treatment program at [facility] located at [address] [place] [address]. 4). Please have the following prescriptions filled at your pharmacy: Aspirin 81 mg, 1 tablet by mouth 1x/day at 8 AM, Dispense #30, NO refills Coreg 6.25 mg, 1 tablet by mouth 2x/day at 8 AM and 8 PM, Dispense #60, NO refills Advair 250/50 mcg, 1 inhalation by mouth 2x/day at 8 AM and 8 PM, Dispense #30, NO refills Albuterol 90 mcg, 2 inhalations by mouth every 6 hours ONLY NEEDED for shortness of breath/wheezing, Dispense #1, NO refills Lisinopril 5 mg, 1 tablet by mouth 1x/day at 2 PM, Dispense #30, NO refills Atorvastatin 80 mg, 1 tablet by mouth 1x/day at 8 PM, Dispense #30, NO refills 5). You were also provided with a prescription that stated the following: The above patient was admitted to the hospital from 09/19/17 through 09/22/17. Patient explained instructions who understands and agrees. Referrals: Vicky Barreto MD [Staff Provider] -
--- NOTE | 2017-09-22 15:14 | PCM.HF ---
Heart Failure Core Measure - Heart Failure Ejection Fraction: Less Than 40 % Left Ventricular Function to be assessed after discharge: Yes SHEYLA Inhibitor Prescribed: Yes Beta-Adele Prescribed: Carvedilol Angiotensin II Receptor Adele Prescribed: No Contraindication/Reason for not providing: on ACEI AnticoagulationTherapy for Atrial Fibrillation/Atrialflutter: No Contraindication/Reason for not providing: not clinically indicated Aldosterone Antagonist Prescribed: No Contraindication/Reason for not providing: not clinically indicated Hydralazine Nitrate Prescribed: No Contraindication/Reason for not providing: not clinically indicated Implantable Cardioverter Defibrillator Therapy: No Contraindication/Reason for not providing: life vest Cardiac Resynchronization Therapy Prescribed: Yes Contraindication/Reason for not providing: life vest - Follow up Will be discharged to: Home Follow Up Date (must be within 7 days from discharge): 09/29/17 Follow Up Time: 09:00
[2017-09-22 16:46] VITALS: BP 146/79; PULSE 56
--- NOTE | 2017-09-23 12:06 | CARD ---
APPROVED REPORT EKG Measurement Heart [id number] MD [id number] <Conclusion> Sinus bradycardia Left bundle branch block Abnormal ECG
--- NOTE | 2017-09-23 12:12 | CARD ---
APPROVED REPORT EKG Measurement Heart [id number] ND [id number] <Conclusion> Sinus bradycardia Left axis deviation Left bundle branch block Abnormal ECG
== END 2017-09-22 18:20 | disposition home or self-care (01) | DRG 140 ==
LOC: C.ER 06:49 → C.9E 08:42 → C.5S 12:29 → OBSVTOIN 22:53
PROVIDERS: ADMIT Internal Medicine; ATTEND Internal Medicine
DX: I24.9 Acute ischemic heart disease, unspecified (principal); I25.10 Atherosclerotic heart disease of native coronary artery without angina pectoris; I44.7 Left bundle-branch block, unspecified; I11.0 Hypertensive heart disease with heart failure; I50.9 Heart failure, unspecified; J44.9 Chronic obstructive pulmonary disease, unspecified; E78.5 Hyperlipidemia, unspecified; E78.00 Pure hypercholesterolemia, unspecified; F17.210 Nicotine dependence, cigarettes, uncomplicated; I69.323 Fluency disorder following cerebral infarction; Z95.1 Presence of aortocoronary bypass graft; Z79.82 Long term (current) use of aspirin; Z79.899 Other long term (current) drug therapy

== ENCOUNTER 2017-12-11 15:10 | Emergency (ER) | payer OTHER ==
[2017-12-11 15:10] VITALS: BMI 22.1
[2017-12-11 15:38] VITALS: BP 124/77; PULSE 66; RESP 16; TEMP 98.1; O2SAT 98
--- NOTE | 2017-12-11 16:29 | RAD ---
PROCEDURE: Radiographs of the left elbow. HISTORY: states needle stuck in arm COMPARISON: None available. FINDINGS: BONES: No acute displaced fracture. JOINTS: No dislocation. SOFT TISSUES: 1.7 cm thin linear metallic foreign body within the subcutaneous soft tissues at the region of interest consistent with foreign body. JOINT EFFUSION: No significant joint effusion. OTHER FINDINGS: None IMPRESSION: 1.7 cm thin linear metallic foreign body within the subcutaneous soft tissues in the region of interest consistent with foreign body.
--- NOTE | 2017-12-11 16:44 | C.PDOC ---
History Of Present Illness 57 year old male presents to ED for evaluation of needle stuck in his left forearm 1 hour ago. States he was using the needle which snapped while in his forearm. Patient denies fever, vomiting, nausea, and other related symptoms. Time Seen by Provider: 12/11/17 15:48 Chief Complaint (Nursing): Upper Extremity Problem/Injury History Per: Patient History/Exam Limitations: no limitations Onset/Duration Of Symptoms: Hrs Current Symptoms Are (Timing): Still Present Past Medical History Reviewed: Historical Data, Nursing Documentation, Vital Signs Vital Signs: Last Vital Signs Temp 98.1 F 12/11/17 15:19 Pulse 66 12/11/17 15:19 Resp 16 12/11/17 15:19 BP 124/77 12/11/17 15:19 Pulse Ox 98 12/11/17 21:03 - Medical History PMH: CAD, CHF, Gastritis, HTN, Hypercholesterolemia Denies: Depression, Diabetes, Chronic Kidney Disease, Seizures, Sexually Transmitted Disease Surgical History: CABG - [facility] DETOXIFICATION SERVICES FOR SUBSTANCE ABUSE TREATMENT (05/10/15) INJECT/INFUSE NEC (04/24/13) Family History: States: Unknown Family Hx - Social History Hx Tobacco Use: Yes Hx Alcohol Use: No Hx Substance Use: Yes - Immunization History Hx Tetanus Toxoid Vaccination: No Hx Influenza Vaccination: No Hx Pneumococcal Vaccination: No Review Of Systems Constitutional: Negative for: Fever, Chills Gastrointestinal: Negative for: Nausea, Vomiting Musculoskeletal: Positive for: Other (needle stuck in arm ) Physical Exam - Physical Exam Appears: Well, Non-toxic, No Acute Distress Skin: Warm, Dry, Other (+ track dillon, with no erythema, swelling, or other signs of cellulitis) Head: Atraumatic, Normacephalic Eye(s): bilateral: Normal Inspection Extremity: No Tenderness, Capillary Refill (less than 2 seconds ), No Deformity , No Swelling, Other (erythematous, superfical incision to left mid forearm, no bleeding present, no visible or palpable for foreign body) Pulses: Left Radial: Normal, Right Radial: Normal Neurological/Psych: Oriented x3, Normal Speech Gait: Steady ED Course And Treatment O2 Sat by Pulse Oximetry: 98 (RA) Pulse Ox Interpretation: Normal - Other Rad X-Ray Left Forearm X-Ray: Viewed By Me, Read By Radiologist Interpretation: FINDINGS: BONES: No acute displaced fracture. JOINTS: No dislocation. SOFT TISSUES: 1.7 cm thin linear metallic foreign body within the subcutaneous soft tissues at the region of interest consistent with foreign body. JOINT EFFUSION: No significant joint effusion. Medical Decision Making Medical Decision Making: Impression: Erythematous superficial incision to left mid forearm, r/o foreign body Plan: -X-ray: left forearm Progress/Updates: X-ray demonstrates foreign body. Paged surgery for consult. 4:26pm Second page to surgery. Received call back from salesperson surgical appliances, who is available to see patient in the ER at 6:15pm. 003 supervisor residential Juanito Mesa arrives to bedside. She will perform procedure to remove foreign body, patient gave written consent. See procedure note. Attempt unsuccessful to remove foreign body. Patient advised to follow up in clinic Disposition Counseled Patient/Family Regarding: Diagnosis, Need For Followup - Disposition Disposition: HOME/ ROUTINE Disposition Time: 20:12 Condition: STABLE Additional Instructions: Keep area clean and dry. May wash gently with soap and water Follow up with the clinic in 2-5 days for further evaluation Instructions: Foreign Body in Skin (DC) Forms: vLine (Danish) - POA Present On Arrival: None - Clinical Impression Clinical Impression: Foreign body in left upper extremity - PA / FRONT END LOADER DRIVER / Resident Statement MD/DO has reviewed & agrees with the documentation as recorded. - Scribe Statement The provider has reviewed the documentation as recorded by the Scribe (Maria G Franks) All medical record entries made by the Scribe were at my direction and personally dictated by me. I have reviewed the chart and agree that the record accurately reflects my personal performance of the history, physical exam, medical decision making, and the department course for this patient. I have also personally directed, reviewed, and agree with the discharge instructions and disposition.
[2017-12-11] MEDS ORDERED: Lidocaine 1%/Epinephrine 1:100000 30 ml vial INJ ONE (18:31)
[2017-12-11] MEDS ORDERED: Lidocaine 2% MPF (5 ml) Inj ONE (18:37)
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
== END 2017-12-11 20:26 | disposition home or self-care (01) ==
LOC: C.ER 15:10
DX: S50.852A Superficial foreign body of left forearm, initial encounter (principal); W45.8XXA Other foreign body or object entering through skin, initial encounter; E78.00 Pure hypercholesterolemia, unspecified; I25.10 Atherosclerotic heart disease of native coronary artery without angina pectoris; I50.9 Heart failure, unspecified; I25.2 Old myocardial infarction; I10 Essential (primary) hypertension; F17.210 Nicotine dependence, cigarettes, uncomplicated

== ENCOUNTER 2017-12-29 16:29 | Emergency (ER) | payer OTHER ==
[2017-12-29 16:29] VITALS: BMI 22.1
[2017-12-29 17:01] VITALS: BP 112/58; PULSE 56; RESP 18; TEMP 98.1; O2SAT 98
--- NOTE | 2017-12-29 17:23 | C.PDOC ---
History Of Present Illness 57 year old male presents to the ED for an evaluation of wound and suture removal applied on 12/11/17. Patient states his friend was trying to intravenously inject heroin into his left forearm when the needle snapped. On 12/11/17 the surgical team removed the needle and placed sutures to the wound. Patient denies any fever, swelling, or discharge in the area. Time Seen by Provider: 12/29/17 17:01 Chief Complaint (Nursing): Suture/Staple Removal History Per: Patient History/Exam Limitations: no limitations Onset/Duration Of Symptoms: Days Ago Current Symptoms Are (Timing): Still Present Location Of Injury: Left: Forearm (suture removal ) Past Medical History Reviewed: Historical Data, Nursing Documentation, Vital Signs Vital Signs: Last Vital Signs Temp 98.1 F 12/29/17 16:59 Pulse 56 L 12/29/17 16:59 Resp 18 12/29/17 16:59 BP 112/58 L 12/29/17 16:59 Pulse Ox 98 12/29/17 16:59 - Medical History PMH: CAD, CHF, Gastritis, HTN, Hypercholesterolemia Denies: Depression, Diabetes, Hepatitis, HIV, Chronic Kidney Disease, Seizures, Sexually Transmitted Disease Surgical History: CABG - [facility] Procedures DETOXIFICATION SERVICES FOR SUBSTANCE ABUSE TREATMENT (05/10/15) INJECT/INFUSE NEC (04/24/13) Family History: States: No Known Family Hx - Social History Hx Tobacco Use: Yes Hx Alcohol Use: No Hx Substance Use: Yes - Immunization History Hx Tetanus Toxoid Vaccination: Yes Hx Influenza Vaccination: No Hx Pneumococcal Vaccination: No Review Of Systems Except As Marked, All Systems Reviewed And Found Negative. Constitutional: Negative for: Fever Skin: Positive for: Other (well healing wound with 5 stitches noted to left forearm, no swelling, no discharge) Physical Exam - Physical Exam Appears: Non-toxic Skin: Warm, Other (well healing wound with 5 stitches noted to left forearm, marginal erythema. ) Head: Normacephalic Eye(s): bilateral: Normal Inspection Nose: Normal Oral Mucosa: Moist Extremity: Normal ROM, No Tenderness, Capillary Refill (less than 2 sec to left forearm), No Swelling Pulses: Left Radial: Normal, Right Radial: Normal Neurological/Psych: Oriented x3, Normal Speech Gait: Steady ED Course And Treatment O2 Sat by Pulse Oximetry: 98 (RA) Pulse Ox Interpretation: Normal Progress Note: 5 stitches removed from left forearm without complication. (+) marginal erythema. (-) swelling. Small amount of purulent discharge was noted to one of the stitches. vice president of procurement was paged at 1710. vice president of procurement examined patient at bedside and found wound was clean and stated patient does not need antibiotics. Patient stable and ready for discharge. Disposition - Disposition Disposition: HOME/ ROUTINE Disposition Time: 17:22 Condition: STABLE Additional Instructions: Follow up with your PMD within 1-2 days. Return to ED if feel worse. Instructions: Stitches Removal Forms: [employer] (Kazakh) - Clinical Impression Clinical Impression: Removal of suture - PA / ASSISTANT PROFESSOR OF BUSINESS / Resident Statement MD/DO has reviewed & agrees with the documentation as recorded. - Scribe Statement The provider has reviewed the documentation as recorded by the Scribe Namita Novak All medical record entries made by the Scribe were at my direction and personally dictated by me. I have reviewed the chart and agree that the record accurately reflects my personal performance of the history, physical exam, medical decision making, and the department course for this patient. I have also personally directed, reviewed, and agree with the discharge instructions and disposition.
--- NOTE | 2017-12-29 17:29 | CP.PCM.CON ---
History of Present Illness - History of Present Illness History of Present Illness: Gen Sx: Dr Sanz Pt S&E in fast-track. Here for suture removal. Concern for after suture removal that there may be underlying infection so asked to see pt. Denies fevers, chills, or any pain in right forearm. There is no erythema or area of fluctuance. There is a raised area of keloid where suture was removed that may have had small 1-2cc fluid collection likely secondary to suture granuloma. This suture has now been removed and fluid drained no need for further intervention, no need for abx. pt can be d/c w/ f/u PRN Past Patient History - Infectious Disease Hx of Infectious Diseases: None - Past Medical History & Family History Past Medical History?: Yes - Past Social History Smoking Status: Heavy Smoker > 10 Cigarettes Daily - CARDIAC Hx Congestive Heart Failure: Yes Hx Hypercholesterolemia: Yes Hx Hypertension: Yes - PULMONARY Hx Respiratory Disorders: No Hx Tuberculosis: No - NEUROLOGICAL Hx Seizures: No - HEENT Hx HEENT Problems: No - RENAL Hx Chronic Kidney Disease: No - ENDOCRINE/METABOLIC Hx Endocrine Disorders: No - HEMATOLOGICAL/ONCOLOGICAL Hx Human Immunodeficiency Virus (HIV): No - INTEGUMENTARY Hx Dermatological Problems: No - MUSCULOSKELETAL/RHEUMATOLOGICAL Hx Musculoskeletal Disorders: No Hx Falls: No - GASTROINTESTINAL Hx Gastritis: Yes - GENITOURINARY/GYNECOLOGICAL Hx Sexually Transmitted Disorders: No - PSYCHIATRIC Hx Depression: No Hx Substance Use: Yes - SURGICAL HISTORY Hx Coronary Artery Bypass Graft: Yes - ANESTHESIA Hx Anesthesia: Yes Hx Anesthesia Reactions: No Meds Allergies/Adverse Reactions: Allergies Allergy/AdvReac Type Severity Reaction Status Date / Time No Known Allergies Allergy Verified 12/29/17 17:01 Results - Vital Signs Recent Vital Signs: Last Vital Signs Temp 98.1 F 12/29/17 16:59 Pulse 56 L 12/29/17 16:59 Resp 18 12/29/17 16:59 BP 112/58 L 12/29/17 16:59 Pulse Ox 98 12/29/17 17:23
== END 2017-12-29 17:30 | disposition home or self-care (01) ==
LOC: C.ER 16:29
DX: Z48.02 Encounter for removal of sutures (principal)

== ENCOUNTER 2018-06-13 07:45 | Emergency (ER) | payer OTHER ==
[2018-06-13 07:46] VITALS: BMI 22.1
[2018-06-13 08:02] VITALS: RESP 18
--- NOTE | 2018-06-13 10:22 | C.PDOC ---
History Of Present Illness 57 y/o male pt presents to the ER c/o right thumb injury. Pt reports that he punched a wall yesterday night because he was upset about his daughter passing away. Associated sx includes pain and swelling. Pt has no other complaints or associated sx at this time. Time Seen by Provider: 06/13/18 07:56 Chief Complaint (Nursing): Finger,Hand,&Wrist History Per: Patient History/Exam Limitations: no limitations Onset/Duration Of Symptoms: Days (x1) Current Symptoms Are (Timing): Still Present Quality: "Pain" Severity: Moderate Past Medical History Reviewed: Historical Data, Nursing Documentation, Vital Signs Vital Signs: Last Vital Signs Temp 99.6 F 06/13/18 07:55 Pulse 71 06/13/18 07:55 Resp 18 06/13/18 07:55 BP 173/92 H 06/13/18 07:55 Pulse Ox 97 06/13/18 07:55 - Medical History PMH: CAD, CHF, Gastritis, HTN, Hypercholesterolemia Surgical History: CABG - [facility] Procedures DETOXIFICATION SERVICES FOR SUBSTANCE ABUSE TREATMENT (05/10/15) INJECT/INFUSE NEC (04/24/13) Family History: States: Unknown Family Hx - Social History Hx Tobacco Use: Yes Hx Alcohol Use: Yes Hx Substance Use: Yes - Immunization History Hx Tetanus Toxoid Vaccination: Yes Hx Influenza Vaccination: No Hx Pneumococcal Vaccination: No Review Of Systems Except As Marked, All Systems Reviewed And Found Negative. Musculoskeletal: Positive for: Other (right thumb pain and swelling ) Neurological: Negative for: Weakness, Numbness Physical Exam - Physical Exam Appears: Non-toxic, No Acute Distress Skin: Warm, Dry Head: Normacephalic Eye(s): bilateral: Normal Inspection Oral Mucosa: Moist Throat: Normal Chest: Symmetrical Cardiovascular: Rhythm Regular Gastrointestinal/Abdominal: Soft, No Tenderness Back: No CVA Tenderness Extremity: No Normal ROM (ROM of phalanx decreased secondary to swelling ), Capillary Refill (<2 sec), Swelling (right thumb ), Other (right thumb: blister on right medial) Pulses: Right Radial: Normal Neurological/Psych: Oriented x3, Normal Speech, Normal Cognition, Normal Sensation ED Course And Treatment O2 Sat by Pulse Oximetry: 97 (RA) Pulse Ox Interpretation: Normal - Other Rad right hand XR X-Ray: Read By Radiologist Interpretation: Accession No. : [id number]. Patient Name / ID : MEHRAN WADDELL / [id number]. Exam Date : 06/13/2018 08:25:29 ( Approved ). Study Comment : Sex / Age : M / 57Y. Creator : Omar Fuentes MD. Dictator : Omar Fuentes MD. Fine Unhairer : Window Maker : Omar Fuentes MD. Approver2 : Report Date : 06/13/2018 11:11:42. My Comment : . Right hand three views. HISTORY: Trauma. Comparison: None available. FINDINGS: Prominent soft tissue swelling at the level of the 1st proximal and distal phalanges. Clinical correlation. No evidence of acute displaced fracture or dislocation. Narrowing of the 1st MCP joint space as well as the 2nd through 5th PIP and DIP joint spaces suggestive for degenerative changes. Impression: Prominent soft tissue swelling at the level of the 1st proximal and distal phalanges. Clinical correlation. No evidence of acute displaced fracture or dislocation. Narrowing of the 1st MCP joint space as well as the 2nd through 5th PIP and DIP joint spaces suggestive for degenerative changes. If pain persists, consider correlation with MRI. Medical Decision Making Medical Decision Making: Plans: -- Right hand XR -- Tylenol 18 mm gauge was used to aspirate sanguineous fluid. Pt reports pain has improved. Sterile dressing and finger splint was applied and pt instructed to f/u with orthopedic. Disposition Counseled Patient/Family Regarding: Studies Performed, Diagnosis, Need For Followup, Rx Given - Disposition Referrals: Diann Schafer MD [Staff Provider] - Disposition: HOME/ ROUTINE Disposition Time: 10:20 Condition: STABLE Prescriptions: Cephalexin [Keflex] 500 mg PO QID #28 capsule Ibuprofen [Motrin] 600 mg PO TID #20 tab Instructions: Finger Sprain (DC) Forms: General Discharge Instructions, [facility] ([place]), Work Excuse - POA Present On Arrival: None - Clinical Impression Clinical Impression: Thumb sprain - Scribe Statement The provider has reviewed the documentation as recorded by the Scribe [place] Do Provider Attestation: All medical record entries made by the Scribe were at my direction and personally dictated by me. I have reviewed the chart and agree that the record accurately reflects my personal performance of the history, physical exam, medical decision making, and the department course for this patient. I have also personally directed, reviewed, and agree with the discharge instructions and disposition.
--- NOTE | 2018-06-13 10:22 | C.PDOC ---
Time Seen by Provider: 06/13/18 07:56 Chief Complaint (Nursing): Finger,Hand,&Wrist Past Medical History Vital Signs: Last Vital Signs Temp 99.6 F 06/13/18 07:55 Pulse 71 06/13/18 07:55 Resp 18 06/13/18 07:55 BP 173/92 H 06/13/18 07:55 Pulse Ox 97 06/13/18 10:22 - Medical History PMH: CAD, CHF, Gastritis, HTN, Hypercholesterolemia Denies: Depression, Diabetes, Hepatitis, HIV, Chronic Kidney Disease, Seizures, Sexually Transmitted Disease Surgical History: CABG - [facility] Procedures DETOXIFICATION SERVICES FOR SUBSTANCE ABUSE TREATMENT (05/10/15) INJECT/INFUSE NEC (04/24/13) Family History: States: Unknown Family Hx - Social History Hx Tobacco Use: Yes Hx Alcohol Use: Yes Hx Substance Use: Yes - Immunization History Hx Tetanus Toxoid Vaccination: Yes Hx Influenza Vaccination: No Hx Pneumococcal Vaccination: No ED Course And Treatment O2 Sat by Pulse Oximetry: 97 Disposition - Disposition Prescriptions: Cephalexin [Keflex] 500 mg PO QID #28 capsule Ibuprofen [Motrin] 600 mg PO TID #20 tab Forms: [employer] (Honduran)
[2018-06-13 10:42] VITALS: BP 142/81; PULSE 65; TEMP 98.2
--- NOTE | 2018-06-13 11:15 | RAD ---
Right hand three views HISTORY: Trauma. Comparison: None available. FINDINGS: Prominent soft tissue swelling at the level of the 1st proximal and distal phalanges. Clinical correlation. No evidence of acute displaced fracture or dislocation. Narrowing of the 1st MCP joint space as well as the 2nd through 5th PIP and DIP joint spaces suggestive for degenerative changes. Impression: Prominent soft tissue swelling at the level of the 1st proximal and distal phalanges. Clinical correlation. No evidence of acute displaced fracture or dislocation. Narrowing of the 1st MCP joint space as well as the 2nd through 5th PIP and DIP joint spaces suggestive for degenerative changes. If pain persists, consider correlation with MRI.
[2018-06-13 11:34] VITALS: O2SAT 97
== END 2018-06-13 10:42 | disposition home or self-care (01) ==
LOC: C.ER 07:45
DX: S63.601A Unspecified sprain of right thumb, initial encounter (principal); W22.01XA Walked into wall, initial encounter; I50.9 Heart failure, unspecified; E78.00 Pure hypercholesterolemia, unspecified; I25.10 Atherosclerotic heart disease of native coronary artery without angina pectoris; I10 Essential (primary) hypertension; Z72.0 Tobacco use